=== PATIENT | female | born 1940 | race Caucasian/White ===

== ENCOUNTER 2017-08-02 14:57 | Inpatient (IN) | payer OTHER ==
[~2017-08-02] VITALS: Ht 167.6 cm; Wt 61.2 kg
[2017-08-02 15:23] LABS: ABSOLUTE BASOPHIL COUNT 0 /CUMM (0.0-0.2); ABSOLUTE EOSINOPHIL COUNT 0 /CUMM (0.0-0.7); ABSOLUTE GRANULOCYTE CT 13.9 /CUMM (1.4-6.5); ABSOLUTE LYMPH COUNT 0.2 /CUMM (1.2-3.4); ABSOLUTE MONOCYTE COUNT 0.6 /CUMM (0.10-0.60); BASOPHIL % 0.1 % (0.0-2.0); EOSINOPHIL % 0.1 % (0-5); GRANULOCYTE % 94.1 % (42.2-75.2); HEMATOCRIT 34.7 % (37-47); MEAN CORPUSCULAR HGB 30.5 PG (27.0-31.0); MEAN CORPUSCULAR VOLUME 89.8 FL (81.0-99.0); MEAN PLATELET VOLUME 8.3 FL (7.4-10.4); PLATELET COUNT 208 /CUMM (130-400); RBC DISTRIBUTION WIDTH 13.7 % (11.5-14.5); RED BLOOD CELL CT 3.86 /CUMM (4.20-5.40); WHITE BLOOD CELL COUNT 14.8 /CUMM (4.8-10.8)
--- NOTE | 2017-08-02 18:27 | ED GI/GU/ABDOMINAL COMPLAINT ---
See Addendum History of Present Illness General Chief Complaint: Nausea, Vomiting, Diarrhea Stated Complaint: +V X 3 TIMES TODAY Source: patient, old records Exam Limitations: no limitations Vital Signs & Intake/Output Vital Signs & Intake/Output Vital Signs Date Time Temp Pulse Resp B/P B/P Pulse O2 O2 Flow FiO2 Mean Ox Delivery Rate 08/027 96.3 63 18 136/63 99 Room Air 08/02 2244 65 20 109/56 100 Room Air 08/02 2016 97.0 74 16 121/77 100 Room Air 08/02 1506 98.9 112 16 122/72 96 Room Air ED Intake and Output 08/03 0000 08/02 1200 Intake Total 2000 Output Total Balance 1999 Intake, IV 1999 Intake, Oral 0 Allergies Coded Allergies: procaine (From NOVOCAIN) (Severe, COULDNT WAKE UP 08/02/17) Sulfa (Sulfonamide Antibiotics) (Intermediate, ITCHING 08/02/17) nitrofurantoin (From MACROBID) (Intermediate, FELT WORSE TAKING IT 08/02/17) Triage Note: PT TO ED WITH C/O VOMITING X3 TIMES TODAY AFTER EATING BREAKFAST. STATES THAT SHE HAS BEEN TOLD SHE MAY HAVE ISSUES WITH HER GALLBLADDER BUT PT IS UNSURE WHAT. DENIES ANY ABD PAINS NOW, DENIES ANY NAUSEA CURRENTLY. Triage Nurses Notes Reviewed? yes ? n Is pt currently ? No Onset: Abrupt Duration: day(s): (1), better, constant Timing: recent history Quality/Severity: aching, moderate, sharpness Severity Numbers: 6 Location: epigastric Radiation: no radiation Activities at Onset: eating Prior Abdominal Problems: similar symptoms No Modifying Factors: none Associated Symptoms: denies HPI: 37-year-old female history of hypothyroid presents to ER for evaluation of she developed sudden onset of epigastric nonradiating abdominal pain associated 3 episodes of nausea vomiting today. She states her symptoms have since resolved she states she is feeling nauseous no hematemesis no black or bloody stools. She denies any fevers or chills. Her family states over the past few weeks she' s had similar episodes at which time she had an ultrasound performed last week that showed cholelithiasis and biliary sludge. She was scheduled to follow up with general surgeon Dr. Correa on for evaluation however the episodes occur today associated with a fever of 102. She took Tylenol prior to arrival. She states that she had blood work performed last week and was told by her primary care physician that her liver enzymes were elevated. No history of abdominal surgeries in the past. No chest pain or shortness of breath nothing makes pain better or worse. (Benjamin Franklin) Past History Travel History Traveled to [place] past 21 day No Medical History Any Pertinent Medical History? see below for history Gastrointestinal: ?GALLBLADDER ISSUES Endocrine: hypothyroidism Surgical History Surgical History: none Psychosocial History What is your primary language Japanese Tobacco Use: Never used Family History Hx Contributory? No (Benjamin Franklin) Review of Systems Review of Systems Constitutional: Reports: see HPI. Comments Review of systems: See HPI, All other systems negative. Constitutional, no chills no fever, no malaise HEENT: no sore throat no congestion, no ear pain Cardiovascular: No chest pain , no palpitation Skin: no rashes, no change in skin Respiratory: No dyspnea no cough no sputum GI: nausea vomiting, no diarrhea, no bloating/constipation : No dysuria No hematuria, no frequency Muscle skeletal: No joint pain, no back pain, no neck pain, Neurologic: , no headache Heme/endocrine: No bruising (Benjamin Franklin) Physical Exam Physical Exam General Appearance: well developed/nourished, alert, awake Gastrointestinal: soft Comments: Well-developed well-nourished person in no acute distress HEENT: Normal EENT exam; PERRL, EOMI, . HEAD is atraumatic. moist mucous membranes. Neck: Supple, normal range of motion Back: Nontender, no CVA tenderness. Full range of motion Cardiovascular: Regular rate and rhythms no murmurs rubs Respiratory: Chest nontender.There were no bony deformities, no asymmetry. No respiratory distress. Patient speaking in full complete sentences. Breath sounds clear to auscultation bilaterally: NO W/R/R Abdomen: Soft, nontender nondistended, no appreciable organomegaly. Normal bowel sounds. No rebound/guarding,, No ascites. Extremity: No edema, full range of motion of extremities Neuro: Alert oriented x3, motor sensory normal,. There were no obvious focal neurologic abnormalities. Skin: No appreciable rash on exposed skin, skin is warm and dry. Psych: Mood and affect is normal, memory and judgment is normal. Core Measures ACS in differential dx? Yes Sepsis Present: No Sepsis Focused Exam Completed? No (Louie CAMP,Benjamin) Progress Differential Diagnosis: appendicitis, biliary colic, bowel obstruction, colon cancer, cholecystitis (cholangitis), diverticulitis, gastritis, hepatitis, hernia, ischemic bowel, inflamm bowel dis, pancreatitis, peptic ulcer, PUD/GERD, perforated viscous Plan of Care: Orders Procedure Date/time Status Nothing by Mouth 08/03 B Active HEPATIC FUNCTION PANEL 08/03 06 Active CBC WITHOUT DIFFERENTIAL 08/03 0600 Active BASIC ELECTROLYTES PLUS BUN&CR 08/03 0600 Active TROPONIN LEVEL 08/03 0004 Active EKG 08/03 0004 Active Pathway - chart 08/02 235 Active House Staff 08/02 235 Active Patient Data 08/02 2304 Active LACTIC ACID 08/02 230 Complete Saline Lock 08/02 2150 Active Misc Message 08/02 2150 Active ED Holding Orders 08/02 2150 Active Admit to inpatient 08/02 2150 Active Vital Signs 08/02 2150 Active Code Status 08/02 2150 Active Add-on Test (ER Only) 08/02 210 Active EKG 08/02 1932 Active Intake & Output 08/02 1851 Active Add-on Test (ER Only) 08/02 1842 Active BLOOD CULTURE 08/02 1842 Active LACTIC ACID 08/02 1842 Complete PARTIAL THROMBOPLASTIN TIME 08/02 1515 Complete PROTHROMBIN TIME 08/02 1515 Complete DIRECT BILIRUBIN 08/02 1515 Complete TROPONIN LEVEL 08/02 1507 Complete LIPASE 08/02 1507 Complete COMPREHENSIVE METABOLIC PANEL 08/02 1507 Complete CBC WITHOUT DIFFERENTIAL 08/02 1507 Complete VTE Mechanical Prophylaxis 08/02 UNK Active Current Medications Sig/Dominique Start time Last Medication Dose Stop Time Status Admin Ceftriaxone Sodium 1,000 MG 1900 08/03 1900 AC (Rocephin) Levothyroxine Sodium 37.5 MCG DAILY 08/03 0900 AC (Synthroid) Sodium Chloride 1,000 ML Q10H 08/03 0015 AC (Normal Saline 0.9%) 08/03 2013 Trimethobenzamide HCl 200 MG TID PRN 08/03 0015 AC (Tigan) Metronidazole 500 MG IQ8 08/03 0000 AC (Flagyl) N/A 1 UNIT (No Carrier) Acetaminophen 650 MG Q6P PRN 08/02 2345 AC (Tylenol) Laboratory Tests 08/02/17 2343: Lactic Acid 1.3 08/02/17 214: Lactic Acid Cancelled 08/02/17 191: Lactic Acid 2.0 08/02/17 1515: Anion Gap 12, Estimated GFR > 60, BUN/Creatinine Ratio 13.8, Glucose 137 H, Calcium 9.2, Total Bilirubin 3.2 H, Direct Bilirubin 2.4 H, AST 73 H, ALT 95 H, Alkaline Phosphatase 348 H, Troponin I 0.08, Total Protein 6.5, Albumin 3.8, Globulin 2.7, Albumin/Globulin Ratio 1.4, Lipase 87, PT 12.4, INR 1.14, APTT 30, CBC w Diff MAN DIFF ORDERED, RBC 3.86 L, MCV 89.8, MCH 30.5, MCHC 34.0, RDW 13.7, MPV 8.3, Gran % 94.1 H, Lymphocytes % 1.7 L, Monocytes % 4.0, Eosinophils % 0.1, Basophils % 0.1, Absolute Granulocytes 13.9 H, Segmented Neutrophils 81 H, Band Neutrophils 14 H, Absolute Lymphocytes 0.2 L, Monocytes 5, Absolute Monocytes 0.6, Absolute Eosinophils 0, Absolute Basophils 0, Platelet Estimate VERIFIED BY SMEAR, Stomatocytes 1+ Microbiology 08/03 1911 BLOOD: Blood Culture - RECD 08/02 1899 BLOOD: Blood Culture - RECD Labs ordered old records reviewed patient is declining pain when offered Zofran 4 IV IV fluids ordered Case discussed with Dr. Alaniz who agrees with plan-I discussed with patient and her family her lab results CAT scan ordered her family will go home to get a copy of the ultrasound. 1999 patient back from CAT scan resting comfortably she's had no episodes of vomiting here declining anything for pain when offered 08/02/2017 8:04:10 PM Case discussed with and signed out to Dr. Alaniz pending CAT scan results Diagnostic Imaging: Viewed by Me: CT Scan. Discussed w/RAD: CT Scan. Initial ED EKG: normal intervals, normal p-waves, normal QRS complex, normal sinus rhythm Hand-Off Endorsed To: Katty BERNARD,Willian Castillo Endorsed Time: 1999 Pending: CT, consult (surgery/gi) (Benjamin Franklin) Radiology Impression: PATIENT: SHELLEY JASMINE PRESENT AGE: 77 PATIENT ACCOUNT NO: [id number] : 42 LOCATION: [facility] ORDERING PHYSICIAN: Benjamin CAMP SERVICE DATE: 08/02/17 EXAM TYPE: CAT - CT ABD & PELVIS W IV CONTRAST EXAMINATION: CT ABDOMEN AND PELVIS WITH CONTRAST CLINICAL INFORMATION: Right upper quadrant abdominal pain. History of cholelithiasis. COMPARISON: None TECHNIQUE: Multidetector volumetric imaging was performed of the abdomen and pelvis following IV administration of 95 mL of Optiray 320 intravenous contrast. Sagittal and coronal reformatted images were obtained on the technologist's workstation. DLP: 235.19 mGy-cm FINDINGS: LUNG BASES: Linear scarring at lung bases. No infiltrate or pleural effusion. LIVER, GALLBLADDER, AND BILIARY TREE: There is intrahepatic and extra hepatic bile duct dilatation. The extrahepatic CBD is dilated to a diameter of 1.8 cm at the shmuel hepatis. There are 2 stones impacted in the distal CBD these each measure about 1.3 cm. These stones are both isodense stones. There are no calcified stones in the gallbladder. No edema around the gallbladder. No focal liver lesion. PANCREAS: Unremarkable. SPLEEN: Unremarkable. ADRENAL GLANDS: Unremarkable. KIDNEYS AND URETERS: The kidneys are normal in size, shape, and attenuation. No hydronephrosis, hydroureter, or calculi seen. No perinephric stranding. BLADDER: Unremarkable. GASTROINTESTINAL TRACT: There are scattered diverticula of the colon. No diverticulitis. No bowel obstruction. No bowel wall thickening or edema. Moderate volume of stool in the colon. Most of the stool is in the cecum and in the pelvis. The appendix is normal. The small bowel loops are normal. ABDOMINAL WALL: Small fat-containing umbilical hernia. LYMPH NODES: Normal. VASCULAR: There is atherosclerotic vascular wall calcifications of aorta and iliac vessels without aneurysm. There is prominent pelvic sidewall vessels and subserosal vessels of the uterus. There are prominent gonadal veins bilaterally. PELVIC VISCERA: The uterus is retroverted. No adnexal abnormality. OSSEOUS STRUCTURES: Degenerative spondylosis of spine with disc height narrowing and endplate spurring at L4-L5. There is facet joint arthrosis at lower lumbar spine. IMPRESSION: Significant dilatation of the bile ducts. There are 2 stones impacted in the distal CBD. These each measure about 1.3 cm. No stones identified in the gallbladder and there is no edema around the gallbladder. DICTATED BY: Logan Chavira MD DATE/TIME DICTATED:08/02/172022 VIDEO GAME ANIMATOR :ALAN DATE/TIME TRANSCRIBED:08/02/172022 CONFIDENTIAL, DO NOT COPY WITHOUT APPROPRIATE AUTHORIZATION. <Electronically signed in Other Vendor System> SIGNED BY: Logan Chavira MD 08/02/172034 (Willian Alaniz MD) Departure Departure Disposition: STILL A PATIENT Condition: Stable Referrals: Felipe BERNARD,Sandee Goodson (PCP/Family) Departure Forms: Customer Survey General Discharge Information (Benjamin Franklin) Departure Clinical Impression Primary Impression: Cholangitis Secondary Impressions: Sepsis Admission Note Spoke With: Anna Waterman MD Documentation of Exam: Documentation of any treatments & extenuating circumstances including Concerns Regarding Discharge (functional status, medication knowledge or non-compliance, living conditions, etc.) that warrant an admission rather than observation: pt with cholangitis/cholecystitis due to choledocholithiasis... discussed with [facility], who will evaluate patient tomorrow... discussed with dr. flores, who will consult if needed. iv abx given... discused at length with patient and family...pt merits evaluation for ercp. PA/TAILER IN Co-Sign Statement Statement: ED Attending supervision documentation- [x] I saw and evaluated the patient. I have also reviewed all the pertinent lab results and diagnostic results. I agree with the findings and the plan of care as documented in the PA's/TAILER IN's documentation. 08.03.17, 22:30... pt with minimally tender abd to palpation, otherwise comfortable in ED... lft's consistent with obstructive hepatopathy. see admit note above. [] I have reviewed the ED Record and agree with the PA's/TAILER IN's documentation. [] Additions or exceptions (if any) to the PAs/TAILER IN's note and plan are summarized below: [] (Katty BERNARD,Willian Castillo) Critical Care Note Critical Care Note Critical Care Time: 30-74 min (Willian Alaniz MD)
--- NOTE | 2017-08-02 20:35 | CT SCAN REPORT ---
EXAMINATION: CT ABDOMEN AND PELVIS WITH CONTRAST CLINICAL INFORMATION: Right upper quadrant abdominal pain. History of cholelithiasis. COMPARISON: None TECHNIQUE: Multidetector volumetric imaging was performed of the abdomen and pelvis following IV administration of 95 mL of Optiray 320 intravenous contrast. Sagittal and coronal reformatted images were obtained on the technologist's workstation. DLP: 235.19 mGy-cm FINDINGS: LUNG BASES: Linear scarring at lung bases. No infiltrate or pleural effusion. LIVER, GALLBLADDER, AND BILIARY TREE: There is intrahepatic and extra hepatic bile duct dilatation. The extrahepatic CBD is dilated to a diameter of 1.8 cm at the shmuel hepatis. There are 2 stones impacted in the distal CBD these each measure about 1.3 cm. These stones are both isodense stones. There are no calcified stones in the gallbladder. No edema around the gallbladder. No focal liver lesion. PANCREAS: Unremarkable. SPLEEN: Unremarkable. ADRENAL GLANDS: Unremarkable. KIDNEYS AND URETERS: The kidneys are normal in size, shape, and attenuation. No hydronephrosis, hydroureter, or calculi seen. No perinephric stranding. BLADDER: Unremarkable. GASTROINTESTINAL TRACT: There are scattered diverticula of the colon. No diverticulitis. No bowel obstruction. No bowel wall thickening or edema. Moderate volume of stool in the colon. Most of the stool is in the cecum and in the pelvis. The appendix is normal. The small bowel loops are normal. ABDOMINAL WALL: Small fat-containing umbilical hernia. LYMPH NODES: Normal. VASCULAR: There is atherosclerotic vascular wall calcifications of aorta and iliac vessels without aneurysm. There is prominent pelvic sidewall vessels and subserosal vessels of the uterus. There are prominent gonadal veins bilaterally. PELVIC VISCERA: The uterus is retroverted. No adnexal abnormality. OSSEOUS STRUCTURES: Degenerative spondylosis of spine with disc height narrowing and endplate spurring at L4-L5. There is facet joint arthrosis at lower lumbar spine. IMPRESSION: Significant dilatation of the bile ducts. There are 2 stones impacted in the distal CBD. These each measure about 1.3 cm. No stones identified in the gallbladder and there is no edema around the gallbladder.
[2017-08-02 21:55] LABS: PT 12.4 SEC (9.4-12.5); PTT 30 SEC (25-37)
--- NOTE | 2017-08-02 22:34 | History & Physical ---
Donna Jasso 08/02/17 2233: General Information and HPI History of Present Illness: Ms. Zavala is a 77-year-old female with a PMH of polymyalgia rheumatica previously on steroids, hypothyroidism who presents to the ED with N/V. Patient reports this morning she felt hungry and after eating his she had one episode of vomiting. She also had a fever with a recorded temperature of 102.1 and overnight had night sweats. Her PCP ordered imaging that showed choledocholelithiasis and a gallstone measuring 1.1 cm. Subsequently she was given a referral to see Dr. Correa-flor this upcoming . For the past 1 month she has had dry heaving, nausea without abdominal pain and recalls for the past 2 years she has had intermittent nausea that was attributed to GERD. She was recently treated for a asymptomatic UTI with Bactrim which she completed. The only symptom she had at that time was weakness. After completing Bactrim she noticed bilateral hand maculopapular rash but after informing her PCP she was instructed to complete her antibiotics. She is very active, walks without assistance and performs her own ADLs. She denies SOB, CP, abdominal pain, urinary or bowel symptoms Allergies/Medications Allergies: Coded Allergies: procaine (From NOVOCAIN) (Severe, COULDNT WAKE UP 08/02/17) Sulfa (Sulfonamide Antibiotics) (Intermediate, ITCHING 08/02/17) nitrofurantoin (From MACROBID) (Intermediate, FELT WORSE TAKING IT 08/02/17) Past History Travel History Traveled to [place] past 21 day No Medical History Gastrointestinal: ?GALLBLADDER ISSUES Endocrine: hypothyroidism Surgical History Surgical History: none Review of Systems Review of Systems Constitutional: Reports: see HPI. Exam & Diagnostic Data Last 24 Hrs of Vital Signs/I&O Vital Signs Date Time Temp Pulse Resp B/P B/P Pulse O2 O2 Flow FiO2 Mean Ox Delivery Rate 08/03 0112 98.0 69 20 136/73 97 Room Air 08/02 2347 96.3 63 18 136/63 99 Room Air 08/02 2244 65 20 109/56 100 Room Air 08/02 2016 97.0 74 16 121/77 100 Room Air 08/02 1506 98.9 112 16 122/72 96 Room Air Intake & Output 08/03 0800 08/03 0000 08/02 1600 Intake Total 2000 Output Total Balance 2000 Intake, IV 2000 Intake, Oral 0 Patient 135 lb Weight Weight Bed scale Measurement Method Physical Exam General Appearance Alert, Oriented X3, Cooperative, No Acute Distress HEENT Atraumatic, PERRLA, EOMI, Mucous Membr. moist/pink Neck Supple, No JVD Cardiovascular Regular Rate, Normal S1, Normal S2, No Murmurs Lungs Clear to Auscultation, Normal Air Movement Abdomen Normal Bowel Sounds, Soft, No Tenderness, negative Dan sign Extremities No Edema Sepsis Peripheral Pulse Location: Radial Sepsis Peripheral Pulse Exam: Normal Sepsis Cap Refill Exam: <2 Sec Last 24 Hrs of Labs/Tyler: Laboratory Tests 08/02/17 214: Lactic Acid Cancelled 08/02/171911: Lactic Acid 2.0 08/02/17 151: Anion Gap 12, Estimated GFR > 60, BUN/Creatinine Ratio 13.8, Glucose 137 H, Calcium 9.2, Total Bilirubin 3.2 H, Direct Bilirubin 2.4 H, AST 73 H, ALT 95 H, Alkaline Phosphatase 348 H, Troponin I 0.08, Total Protein 6.5, Albumin 3.8, Globulin 2.7, Albumin/Globulin Ratio 1.4, Lipase 87, PT 12.4, INR 1.14, APTT 30, CBC w Diff MAN DIFF ORDERED, RBC 3.86 L, MCV 89.8, MCH 30.5, MCHC 34.0, RDW 13.7, MPV 8.3, Gran % 94.1 H, Lymphocytes % 1.7 L, Monocytes % 4.0, Eosinophils % 0.1, Basophils % 0.1, Absolute Granulocytes 13.9 H, Segmented Neutrophils 81 H, Band Neutrophils 14 H, Absolute Lymphocytes 0.2 L, Monocytes 5, Absolute Monocytes 0.6, Absolute Eosinophils 0, Absolute Basophils 0, Platelet Estimate VERIFIED BY SMEAR, Stomatocytes 1+ Microbiology 08/03 1911 BLOOD: Blood Culture - RECD 08/02 1899 BLOOD: Blood Culture - RECD Diagnostic Data EKG Results SR, T-wave inversions in precordial leads, HR 74, QTc [address] ABDOMEN AND PELVIS WITH CONTRAST IMPRESSION: Significant dilatation of the bile ducts. There are 2 stones impacted in the distal CBD. These each measure about 1.3 cm. No stones identified in the gallbladder and there is no edema around the gallbladder. Assessment/Plan Assessment: Ms. Zavala is a 77-year-old female with a PMH of polymyalgia rheumatica previously on steroids, hypothyroidism who presents to the ED with N/V without abdominal pain. Problem list: Choledocholithiasis Acute Cholangitis Plan: Admit to general med for further evaluation and management NS IVF IV ceftriaxone IV metronidazole Blood cultures 2 Repeat ECG/Troponin Trend lactic acid GI consult for ? ERCP Surgery consult with Dr. Correa as per patient request Diet: Regular DVT ppx: ALPS Code: Full As Ranked By This Provider Problem List: 1. Cholangitis 2. Sepsis Core Measures/Misc (12/27) Acute Coronary Syndrome ACS Diagnosis: No Congestive Heart Failure Congestive Heart Failure Diagnosis No Cerebrovascular Accident CVA/TIA Diagnosis: No VTE (View Protocol) VTE Risk Factors Age>40 No Mechanical VTE Prophylaxis d/t N/A MechProphylax Ordered No VTE Pharm Prophylaxis d/t Medical Contraindication Sepsis (View protocol) Sepsis Present: Yes Anna Waterman 08/03/17 0418: Attending MD Review Statement Attending Statement Attending MD Statement: examined this patient, discuss w/resident/PA/TRUCK MECHANIC, agreed w/resident/PA/TRUCK MECHANIC, discussed with family, reviewed EMR data (avail), reviewed images, amended to note Attending Assessment/Plan: CC: Vomiting PMH: Hypothyroidism Patient came to ER for 3 episodes of vomiting today. She states that she was last 2 weeks she has been having dry heaving, fatigue. She followed up outpatient with the primary care physician where her liver function tests were elevated so she underwent right upper quadrant ultrasound. She was told that she has gallbladder stones and she needs to be seen by a surgeon. She is expecting to see surgeon in near future but meanwhile she had 3 episodes of vomiting today followed by chills, fever of 102 so she called primary care physician who suggested to go to ER. Recently she was treated with by mouth Bactrim for UTI. Otherwise complete ROS unremarkable, patient denies any pain in abdomen or chest at this moment. Vitals: T max 98.9, pulse 112, RR 16, blood pressure 122/72, saturating 96% on room air On exam: A O 3, cooperative, no acute distress, neck supple, JVD normal, no lymphadenopathy, mucosa dry, no focal neurological deficit, no dependent edema, no obvious skin rashes or inflammation CVS: S1-S2, RRR. RS: Clear to auscultate bilaterally. Abdomen: Soft, NT, ND, bowel sounds present. Dan's sign negative CT abdomen pelvis with IV contrast: Significant dilatation of the bile ducts. There are 2 stones impacted in the distal CBD. These each measure about 1.3 cm. No stones identified in the gallbladder and there is no edema around the gallbladder. Assessment and plan 77-year-old female with past medical history significant for hypothyroidism presented in ER for nausea and 3 episodes of vomiting, chills, fever which happened today. She has been having dry he cuts and vague fatigue since last 2 weeks and was investigated with liver function test which was elevated and right upper quadrant ultrasound showed CBD stone. She was referred to surgery for cholecystectomy, awaiting evaluation. Examination reveals dehydration otherwise unremarkable, including Dan's sign negative. She is found to have significant leukocytosis with bandemia, elevated bilirubin especially direct bilirubin, transaminitis, elevated alkaline phosphatase. Lipase normal range. CT abdomen and pelvis confirms impacted distal CBD stone, given history of fever, chills at home and tachycardia with leukocytosis will cover empirically with antibiotics with ceftriaxone and Flagyl for ascending cholangitis. Grinder Set [employer] was called from ER. + CBD stone with suspected ascending cholangitis + History of hypothyroidism - Admit to general medicine - Continue aggressive hydration - Follow blood cultures - IV ceftriaxone and Flagyl - Consult community chest officer for possible ERCP - Surgical consult after ERCP - Serial troponins and ECGs - Trend lactate - Vitals every 4 hours - Adequate pain control Fariha St 08/03/17 0511: Resident Review Statement Resident Statement: examined this patient, discussed with information technology internship, agreed with information technology internship, reviewed images, amended to note Other Findings: 77-year-old lady with past medical history of polymyalgia rheumatica not on steroids since 2 years ago, hypothyroidism,Recent UTI treated with Bactrim which resulted in 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 Information was obtained from patient's family and patient have self. According to family and the patient she's been having occasional nausea and dyspepsia on and off for past 2 years. About months ago patient's nausea and abdominal discomfort has increased in frequency. Patient was prescribed PPI per PCP for possible DDX of GERD. Abdominal ultrasound which was done about 10 days ago showed choledocholithiasis and patient supposed to see Dr. Correa in the upcoming week for consultation. Today before coming to the hospital patient a fever of 102 and increased nausea with night sweats with one episode of vomiting. He was advised by PCP to come to the hospital for admission. Vision is active at baseline and does not have any history of chest pain, shortness of breath, coughing, diarrhea, constipation, TIA, heart attacks before. She had one episode of hospitalization due to polymyalgia rheumatica about 5 years ago. 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 CT of the abdomen and pelvis Significant dilatation of the bile ducts. There are 2 stones impacted in thedistal CBD. These each measure about 1.3 cm. No stones identified in the gallbladder and there is no edema around the gallbladder. EKG showed normal sinus rhythm, no acute ST-T elevations, QTC was 484, inverted T in V1 and V2 Assessment Sepsis due to cholangitis and choledocholithiasis History of hypothyroidism Lactic acidosis which is resolved Plan Admit to general medicine floor NPO IV hydration with Normal saline Antibiotic therapy with IV ceftriaxone daily and IV Flagyl every 8 ERCP in the morning by GI IV levothyroxine Follow-up blood culture Vitals every 4 EKG and troponin 2 IM Tigan when necessary for nausea Surgery consultation with Dr. Correa should be placed in the morning per request of the family DVT prophylaxis is mechanical for now, Tylenol for pain, NPO, full code
[2017-08-03 01:12] VITALS: BP 136/73
--- NOTE | 2017-08-03 04:19 | Admission Certification ---
Admission Certification Certification Statement - As attending physician, I certify that at the time of - admission, based on clinical presentation, severity of - symptoms, need for further diagnostic testing and - therapeutic interventions, and risk of adverse outcomes - without in-hospital treatment, in my clinical assessment, - this patient requires an acute hospital stay for a minimum - of two nights or longer. I have also considered psychsocial - factors such as support system, advanced age, financial - issues, cognitive issues, and failed out-patient treatments, - past re-admission history, safety of patient, and lack of - compliance as applicable. Specific rationale supporting this admission is: CBD stone, suspected ascending cholangitis
--- NOTE | 2017-08-03 07:13 | PN- Housestaff ---
[facility] Subjective Follow-up For: Choledocholithiasis and possible cholangitis Gram -ve bacteremia Subjective: Over night events. Patient remained afebrile blood pain seen and examined this morning. She denied any chest pain, shortness of breath, palpitation, chills, fever, vomiting, abdominal pain and dysuria. She reported having nausea. Nursing staff told me that her blood culture is positive for gram -ve rods. Patient is already on antibiotics and we will repeat blood cultures. Review of Systems Constitutional: Denies: chills, fever, weakness. EENTM: Reports: no symptoms. Cardiovascular: Denies: chest pain, palpitations. Respiratory: Denies: cough, short of breath, sputum production. Gastrointestinal: Reports: nausea. Denies: abdominal pain, constipation, diarrhea. Genitourinary: Reports: no symptoms. Musculoskeletal: Reports: no symptoms. Neurological/Psychological: Reports: no symptoms. Objective Last 24 Hrs of Vital Signs/I&O Vital Signs Date Time Temp Pulse Resp B/P B/P Pulse O2 O2 Flow FiO2 Mean Ox Delivery Rate 08/03 07 98.1 78 20 110/57 99 Room Air 08/03 0112 98.0 69 20 136/73 97 Room Air 08/02 2347 96.3 63 18 136/63 99 Room Air 08/02 2244 65 20 109/56 100 Room Air 08/02 2016 97.0 74 16 121/77 100 Room Air 08/02 1506 98.9 112 16 122/72 96 Room Air Intake & Output 08/03 1600 08/03 0800 08/03 0000 Intake Total 400 2000 Output Total Balance 400 2000 Intake, IV 400 2000 Intake, Oral 0 Patient 135 lb Weight Weight Bed scale Measurement Method Physical Exam General Appearance: Alert, Oriented X3, Cooperative Skin: No Rashes Skin Temp/Moisture Exam: Warm/Dry Sepsis Skin Exam (color): Normal for Ethnicity HEENT: Atraumatic, PERRLA, EOMI Neck: Supple Cardiovascular: Normal S1, Normal S2 Lungs: Clear to Auscultation Abdomen: Soft, No Tenderness Neurological: Normal Speech, Strength at 5/5 X4 Ext, Normal Tone Extremities: No Edema Assessment/Plan Assessment: 77-year-old female with a PMH of polymyalgia rheumatica previously on steroids, hypothyroidism who presents to the ED with N/V. Patient reports this morning she felt hungry and after eating his she had one episode of vomiting. Following the patient on Gen. medicine floor for following problems; Choledocholithiasis with possible cholangitis: -Nothing by mouth -Continued ceftriaxone and Flagyl. Unasyn 3gm Q6h started day 1 -Patient is going for ERCP today -Follow-up with CBC and if patient becomes febrile then we will do blood cultures. -We will follow general surgery for possible cholecystectomy before she leaves -Gentle IV fluid hydration with dextrose half normal saline -IV Zofran as needed for nausea vomiting Gram -ve bacteremia: -Follow up final blood cultures. -Continue antibiotics Transaminitis: -Possibly due to CBD stone -We will follow LFTs History of hypothyroidism: -Continue levothyroxine DVT prophylaxis: Mechanical and subcutaneous heparin CODE STATUS: Full code Problem List: 1. Cholangitis Pain Ratin Pain Location: NONE Pain Goal: Remain pain free Pain Plan: PAIN PATHWAY Tomorrow's Labs & Rationales: CBC/BEP Sergio Wahl MD 08/03/17 1128: Attending MD Review Statement Attending Statement Attending MD Statement: examined this patient, discuss w/resident/PA/PAPERHANGER APPRENTICE, agreed w/resident/PA/PAPERHANGER APPRENTICE, reviewed EMR data (avail), discussed with nursing, discussed with case mgmt, amended to note Attending Assessment/Plan: Patient seen and examined. Resting comfortably and not in any acute distress. Denies nausea or vomiting. Denies abdominal pain. She is afebrile and hemodynamically stable. On examination abdomen is nondistended, soft and nontender with normal bowel sounds. She has been seen by the gastroenterology service today and they have plans to perform an ERCP for stone extraction. Once this is completed she will also be evaluated by the general surgery service for cholecystectomy. Patient is in agreement with this plan. Patient did present with an elevated white count. She did report fever at home although she has been afebrile here in the hospital. She is being treated for cholangitis with IV antibiotic therapy. Will continue antibiotic therapy for now. Change to Unasyn for appropriate coverage.
[2017-08-03 07:22] VITALS: BP 110/57
--- NOTE | 2017-08-03 07:47 | Cons- Gastroenterology ---
General Information and HPI Consulting Request Date of Consult: 08/03/17 Requested By: Anna Waterman MD Reason for Consult: Cholangitis; increased LFTs, choledocolithiasis on ct scan. Source of Information: patient Exam Limitations: no limitations History of Present Illness: Ms. Calix is a 77 year old female with a PMH significant for hypothyroidism who presented to yesterday afternoon with complaints of nausea and vomiting and fevers. She notes that yesterday around noon she developed worsening nausea , bloating and bilious vomiting, but she denies having significant abdominal or back pain. She has had some issues with intermittent nausea and vomiting over the past few months, but she denies any RUQ abdominal pain after eating. She had gotten an US a few weeks ago for dyspeptic symptoms at [facility] which showed gallstones and she was going to see a surgeon, Dr. Correa, on . She had a fever of 103F at home for which she took tyenol with defervesence of her fever and she has not had any recurrent temperature spikes since then. She denies any noticable change in the color of her urine of stool, both of which she states are normal. She is also without any burning epigastric discomfort, dysphagia or any hematemesis with the vomiting. On arrival to the ER she was afebrile and hemodynamically stable. She was noted to have increased LFTs and a ct scan showed choledocolithiasis. She has been started on antibiotics and she has remained afebrile, hemodynamically stable and pain free since she has been admitted. Allergies/Medications Allergies: Coded Allergies: procaine (From NOVOCAIN) (Severe, COULDNT WAKE UP 08/02/17) Sulfa (Sulfonamide Antibiotics) (Intermediate, ITCHING 08/02/17) nitrofurantoin (From MACROBID) (Intermediate, FELT WORSE TAKING IT 08/02/17) Current Medications: Current Medications Sig/Dominique Start time Last Medication Dose Route Stop Time Status Admin Acetaminophen 650 MG Q6P PRN 08/02 2345 AC PO Ceftriaxone Sodium 1,000 MG 1900 08/03 1899 AC IV Ceftriaxone Sodium 0 .STK-MED ONE 08/03 1943 DC .ROUTE Ceftriaxone Sodium 1,000 MG ONCE ONE 08/02 1899 DC 08/02 IV 08/02 Levothyroxine Sodium 37.5 MCG DAILY 08/03 0900 AC IV Metronidazole 500 MG Q8H 08/03 1100 AC N/A 1 UNIT IV Metronidazole 500 MG IQ8 08/03 0000 DC 08/03 N/A 1 UNIT IV 0246 Metronidazole 500 MG ONCE ONE 08/02 1900 DC 08/02 N/A 1 UNIT IV 08/02 Ondansetron HCl 0 .STK-MED ONE 08/02 190 DC .ROUTE Ondansetron HCl 4 MG ONCE ONE 08/02 184 DC 08/02 IV 08/02 1845 192 Sodium Chloride 1,000 ML Q10H 08/03 0015 AC 08/03 IV 08/03 Sodium Chloride 1,000 ML BOLUS ONE 08/02 194 DC 08/02 IV 08/02 Sodium Chloride 1,000 ML BOLUS ONE 08/02 1844 DC 08/02 IV 08/02 Trimethobenzamide HCl 200 MG TID PRN 08/03 0015 AC IM Past History Travel History Traveled to [place] past 21 day No Medical History Blood Transfusion Hx: No Neurological: NONE EENT: NONE Cardiovascular: NONE Respiratory: NONE Gastrointestinal: ?GALLBLADDER ISSUES Hepatic: NONE Renal: NONE Musculoskeletal: NONE Psychiatric: NONE Endocrine: hypothyroidism Blood Disorders: NONE Cancer(s): NONE WOUND CARE CENTER CONSULTANT/Reproductive: NONE Surgical History Surgical History: 1 Psychosocial History Where Do You Live? Home Services at Home: None Smoking Status: Never Smoked Review of Systems Review of Systems Constitutional: Reports: chills, fever. Denies: diaphoresis, malaise, weakness, unexplained weight loss. EENTM: Denies: no symptoms, icterus. Cardiovascular: Denies: no symptoms. Respiratory: Denies: no symptoms. GI: Reports: see HPI. Genitourinary: Denies: no symptoms. Musculoskeletal: Denies: no symptoms. Skin: Denies: no symptoms. Neurological/Psychological: Denies: no symptoms. Hematologic/Endocrine: Denies: no symptoms. Immunologic/Allergic: Denies: no symptoms. All Other Systems: Reviewed and Negative Exam & Diagnostic Data Vital Signs and I&O Vital Signs Date Time Temp Pulse Resp B/P B/P Pulse O2 O2 Flow FiO2 Mean Ox Delivery Rate 08/03 721 98.1 78 20 110/57 99 Room Air 08/03 0112 98.0 69 20 136/73 97 Room Air 08/02 2347 96.3 63 18 136/63 99 Room Air 08/02 2244 65 20 109/56 100 Room Air 08/02 2016 97.0 74 16 121/77 100 Room Air 08/02 1506 98.9 112 16 122/72 96 Room Air Intake & Output 08/03 0400 08/02 0400 08/01 0400 Intake Total 400 2000 Output Total Balance 400 2000 Intake, IV 400 2000 Intake, Oral 0 Patient 135 lb Weight Weight Bed scale Measurement Method Physical Exam General Appearance: well developed/nourished, no apparent distress, alert, awake , comfortable Head: atraumatic, normal appearance Eyes: Bilateral: normal appearance. Ears, Nose, Throat: normal pharynx, normal ENT inspection, hearing grossly normal Neck: normal inspection, supple, full range of motion Respiratory: normal breath sounds, chest non-tender, no respiratory distress Cardiovascular: regular rate/rhythm Gastrointestinal: normal bowel sounds, soft, non-tender, no organomegaly Rectal: deferred Back: normal inspection, normal range of motion Extremities: normal inspection, normal range of motion, no edema Skin: intact, normal color, warm/dry Results Pertinent Lab Results: Laboratory Tests 08/03 08/02 08/02 08/02 0115 2343 2142 1912 Chemistry Lactic Acid (0.7 - 2.1 mmol/L) 1.3 Cancelled 2.0 Troponin I (< 0.11 ng/ml) 0.06 08/02 1515 Chemistry Sodium (137 - 145 mmol/L) 136 L Potassium (3.5 - 5.1 mmol/L) 3.6 Chloride (98 - 107 mmol/L) 99 Carbon Dioxide (22 - 30 mmol/L) 25 Anion Gap (5 - 16) 12 BUN (7 - 17 mg/dL) 11 Creatinine (0.5 - 1.0 mg/dL) 0.8 Estimated GFR (>60 ml/min) > 60 BUN/Creatinine Ratio (7 - 25 %) 13.8 Glucose (65 - 99 mg/dL) 137 H Calcium (8.4 - 10.2 mg/dL) 9.2 Total Bilirubin (0.2 - 1.3 mg/dL) 3.2 H Direct Bilirubin (< 0.4 mg/dL) 2.4 H AST (14 - 36 U/L) 73 H ALT (9 - 52 U/L) 95 H Alkaline Phosphatase (<127 U/L) 348 H Troponin I (< 0.11 ng/ml) 0.08 Total Protein (6.3 - 8.2 g/dL) 6.5 Albumin (3.5 - 5.0 g/dL) 3.8 Globulin (1.9 - 4.2 gm/dL) 2.7 Albumin/Globulin Ratio (1.1 - 2.2 %) 1.4 Lipase (23 - 300 U/L) 87 Coagulation PT (9.4 - 12.5 SEC) 12.4 INR (0.90 - 1.19) 1.14 APTT (25 - 37 SEC) 30 Hematology CBC w Diff MAN DIFF ORDERED WBC (4.8 - 10.8 /CUMM) 14.8 H RBC (4.20 - 5.40 /CUMM) 3.86 L Hgb (12.0 - 16.0 G/DL) 11.8 L Hct (37 - 47 %) 34.7 L MCV (81.0 - 99.0 FL) 89.8 MCH (27.0 - 31.0 PG) 30.5 MCHC (33.0 - 37.0 G/DL) 34.0 RDW (11.5 - 14.5 %) 13.7 Plt Count (130 - 400 /CUMM) 208 MPV (7.4 - 10.4 FL) 8.3 Gran % (42.2 - 75.2 %) 94.1 H Lymphocytes % (20.5 - 51.1 %) 1.7 L Monocytes % (1.7 - 9.3 %) 4.0 Eosinophils % (0 - 5 %) 0.1 Basophils % (0.0 - 2.0 %) 0.1 Absolute Granulocytes (1.4 - 6.5 /CUMM) 13.9 H Segmented Neutrophils (42.2 - 75.2 %) 81 H Band Neutrophils (0.0 - 5.0 %) 14 H Absolute Lymphocytes (1.2 - 3.4 /CUMM) 0.2 L Monocytes (1.7 - 9.3 %) 5 Absolute Monocytes (0.10 - 0.60 /CUMM) 0.6 Absolute Eosinophils (0.0 - 0.7 /CUMM) 0 Absolute Basophils (0.0 - 0.2 /CUMM) 0 Platelet Estimate (ADEQUATE) VERIFIED BY SMEAR Stomatocytes 1+ Imaging/Other Studies: SERVICE DATE: 08/02/17 EXAM TYPE: CAT - CT ABD & PELVIS W IV CONTRAST EXAMINATION: CT ABDOMEN AND PELVIS WITH CONTRAST CLINICAL INFORMATION: Right upper quadrant abdominal pain. History of cholelithiasis. COMPARISON: None TECHNIQUE: Multidetector volumetric imaging was performed of the abdomen and pelvis following IV administration of 95 mL of Optiray 320 intravenous contrast. Sagittal and coronal reformatted images were obtained on the technologist's workstation. DLP: 235.19 mGy-cm FINDINGS: LUNG BASES: Linear scarring at lung bases. No infiltrate or pleural effusion. LIVER, GALLBLADDER, AND BILIARY TREE: There is intrahepatic and extra hepatic bile duct dilatation. The extrahepatic CBD is dilated to a diameter of 1.8 cm at the shmuel hepatis. There are 2 stones impacted in the distal CBD these each measure about 1.3 cm. These stones are both isodense stones. There are no calcified stones in the gallbladder. No edema around the gallbladder. No focal liver lesion. PANCREAS: Unremarkable. SPLEEN: Unremarkable. ADRENAL GLANDS: Unremarkable. KIDNEYS AND URETERS: The kidneys are normal in size, shape, and attenuation. No hydronephrosis, hydroureter, or calculi seen. No perinephric stranding. BLADDER: Unremarkable. GASTROINTESTINAL TRACT: There are scattered diverticula of the colon. No diverticulitis. No bowel obstruction. No bowel wall thickening or edema. Moderate volume of stool in the colon. Most of the stool is in the cecum and in the pelvis. The appendix is normal. The small bowel loops are normal. ABDOMINAL WALL: Small fat-containing umbilical hernia. LYMPH NODES: Normal. VASCULAR: There is atherosclerotic vascular wall calcifications of aorta and iliac vessels without aneurysm. There is prominent pelvic sidewall vessels and subserosal vessels of the uterus. There are prominent gonadal veins bilaterally. PELVIC VISCERA: The uterus is retroverted. No adnexal abnormality. OSSEOUS STRUCTURES: Degenerative spondylosis of spine with disc height narrowing and endplate spurring at L4-L5. There is facet joint arthrosis at lower lumbar spine. IMPRESSION: Significant dilatation of the bile ducts. There are 2 stones impacted in the distal CBD. These each measure about 1.3 cm. No stones identified in the gallbladder and there is no edema around the gallbladder. Assessment/Plan Assessment/Recommendations: Assessment: Ms. Calix is a 77 year old female who presented to with N/V which is presumably secondary to gallstone disease with her being noted to have 2 moderate sized gallstones in her CBD on her ct scan along with biliary dilatation. While it is unusual for pts to pass gallstones without any significant abdominal pain she nevertheless has managed to achieve this and considering her increased WBC count and reports of fevers at home the stones should be removed to relieve the obstruction and treat what appears to be cholangitis. The stones are of moderate size on the ct scan so mechanical lithotripsy may be necessary so if that is not able to be achieved today a stent may need to be placed to relieve the obstruction and treat the cholangitis and the stones could be removed at another time. Recommendations: 1. Keep NPO 2. Follow daily LFTs 3. Continue IV antibiotics, but would change to unasyn. 4. Will arrange for a therapeutic ERCP for later today 5. Surgical consult for [facility] (Dr. Correa who she was going to see this ) I will continue to follow this patient and make furthe recommendations based on her clinical course and results of the ERCP to be done later today. Consult Acknowledgment - Thank you for your consult request.
[2017-08-03 08:44] LABS: ABSOLUTE BASOPHIL COUNT 0 /CUMM (0.0-0.2); ABSOLUTE EOSINOPHIL COUNT 0 /CUMM (0.0-0.7); ABSOLUTE GRANULOCYTE CT 9.9 /CUMM (1.4-6.5); ABSOLUTE LYMPH COUNT 0.5 /CUMM (1.2-3.4); ABSOLUTE MONOCYTE COUNT 0.7 /CUMM (0.10-0.60); BASOPHIL % 0.1 % (0.0-2.0); EOSINOPHIL % 0.1 % (0-5); HEMATOCRIT 29.8 % (37-47); MEAN CORPUSCULAR HGB 30.9 PG (27.0-31.0); MEAN CORPUSCULAR HGB CONC 33.9 G/DL (33.0-37.0); MEAN CORPUSCULAR VOLUME 91.1 FL (81.0-99.0); MEAN PLATELET VOLUME 9.2 FL (7.4-10.4); PLATELET COUNT 187 /CUMM (130-400); RBC DISTRIBUTION WIDTH 13.8 % (11.5-14.5); RED BLOOD CELL CT 3.27 /CUMM (4.20-5.40); WHITE BLOOD CELL COUNT 11.2 /CUMM (4.8-10.8)
[2017-08-03 10:11] LABS: GRANULOCYTE % 88.4 % (42.2-75.2)
[2017-08-03 16:00] VITALS: BP 140/80
--- NOTE | 2017-08-03 17:34 | Proc Note ERCP ---
ERCP Procedure Procedure Date: 08/03/17 GI Procedure(s): ERCP with sphincterotomy (ES)/papillary balloon dilatation (EPBD)/[address] man: Allen Peres M.D. ASA Classification: II Indications: Ascending cholangitis Choledocholithiasis identified on imaging Instrument: duodenoscope Meds Received: MAC Patient's Tolerance: good Complications: none Procedure: The patient signed informed consent, and was brought to the operating suite. She was turned into the prone position, and medicated. Indomethacin 100 mg was administered per rectum. Pulse oximetry, blood pressure and cardiac monitoring were performed continuously throughout the procedure. The Olympus V duodenoscope was inserted into the mouth and advanced to the duodenum. There was brief, self-limited bleeding from the oropharynx upon insertion of the duodenoscope. The stomach was not examined. The duodenum was grossly normal. The papilla was enlarged but otherwise normal. The pancreatic duct was not cannulated/injected. The bile duct was cannulated and opacified. The cholangiogram demonstrated dilatation of the common bile duct and common hepatic duct (approximate 1.7 cm), and dilated hepatic ducts. There were no strictures. The cystic duct was not opacified. There were 2 large ( approximately 12 and 13 mm) mobile filling defects in the extrahepatic duct. A partial sphincterotomy was performed. The ampulla was then dilated with a CRE balloon to 13.5 mm for 30 seconds. There was mild/brief, self-limited bleeding at the apex of the papilla. 2 stones were extracted using a fully inflated 15 mm extraction balloon. The balloon itself passed into the duodenum without resistance. A final occlusion cholangiogram was unrevealing, and a final sweep from bifurcation to duodenum did not deliver stone or debris. Impression: * Choledocholithiasis, treated with ES/EPBD and stone extraction Recommendations: * Nothing by mouth until 8 PM, and then begin clear liquids if pain-free * No anticoagulation for 72 hours unless unavoidable * Follow-up CBC and LFTs tomorrow * Continue intravenous antibiotics, pending final results of blood cultures * Surgical consultation; Dr. Correa has been made aware CC: Sunny BERNARD,Norris Wang MD,Sandee Goodson
[2017-08-03 21:38] VITALS: BP 148/76
[2017-08-04 00:04] VITALS: BP 120/76
[2017-08-04 04:27] VITALS: BP 136/57
--- NOTE | 2017-08-04 07:23 | PN- Housestaff ---
GustavoBushnell 08/04/17 0723: Subjective Follow-up For: Choledocholithiasis and possible cholangitis Gram -ve bacteremia Subjective: No overnight events. Patient remained afebrileand examined this morning. She denied any chest pain, short of breath, nausea, vomiting, chills, fever, abdominal pain dysuria. She is on clear liquid diet and she is tolerating it. We will advance it to full liquid. Review of Systems Constitutional: Denies: chills, fever. EENTM: Reports: no symptoms. Cardiovascular: Denies: chest pain, palpitations. Respiratory: Denies: cough, short of breath, sputum production. Gastrointestinal: Denies: abdominal pain, constipation, diarrhea, nausea. Genitourinary: Reports: no symptoms. Neurological/Psychological: Reports: no symptoms. Objective Last 24 Hrs of Vital Signs/I&O Vital Signs Date Time Temp Pulse Resp B/P B/P Pulse O2 O2 Flow FiO2 Mean Ox Delivery Rate 08/04 0427 98.2 70 20 136/57 96 08/04 0004 97.9 78 20 120/76 96 08/03 2138 98.0 61 20 148/76 95 Room Air 08/03 1600 97.3 60 16 140/80 97 Room Air Intake & Output 08/04 0800 08/04 0000 08/03 1600 Intake Total 940 985 500 Output Total 600 250 Balance 940 385 250 Intake, IV 700 485 500 Intake, Oral 240 500 0 Number 0 0 Bowel Movements Output, Urine 600 250 Physical Exam General Appearance: Alert, Oriented X3, Cooperative Skin: No Rashes Skin Temp/Moisture Exam: Warm/Dry Sepsis Skin Exam (color): Normal for Ethnicity HEENT: Atraumatic, PERRLA, EOMI Neck: Supple Cardiovascular: Normal S1, Normal S2 Lungs: Clear to Auscultation Abdomen: Soft, No Tenderness Neurological: Normal Speech, Strength at 5/5 X4 Ext, Normal Tone Extremities: No Edema Assessment/Plan Assessment: 77-year-old female with a PMH of polymyalgia rheumatica previously on steroids, hypothyroidism who presents to the ED with N/V. Patient reports this morning she felt hungry and after eating his she had one episode of vomiting. Following the patient for following problems; Choledocholithiasis with possible cholangitis s/p ERCP and sphicterotomy: -On clear liquids. Keep her on clear liquids until surgery give us a plan for cholecystectomy. -Continue Unasyn 3gm Q6h started day 2 -Follow-up with CBC and if patient becomes febrile then we will do blood cultures. -We will follow general surgery for possible cholecystectomy before she leaves -IV Zofran as needed for nausea vomiting Gram -ve bacteremia: -Follow up final blood cultures. -Continue antibiotics Transaminitis: -Possibly due to CBD stone -We will follow LFTs History of hypothyroidism: -Continue levothyroxine, changed to po. DVT prophylaxis: Mechanical only and subcutaneous heparin was held as recommended by GI. CODE STATUS: Full code Problem List: 1. Cholangitis Pain Ratin Pain Location: none Pain Goal: Remain pain free Pain Plan: pain pathway Tomorrow's Labs & Rationales: cbc Vish BERNARD,Sergio 08/04/17 1214: Attending MD Review Statement Attending Statement Attending MD Statement: examined this patient, discuss w/resident/PA/[employer], agreed w/resident/PA/[employer], discussed with family, reviewed EMR data (avail), discussed with nursing, discussed with case mgmt, amended to note Attending Assessment/Plan: Patient seen and examined. Resting comfortably not in any acute distress. She underwent ERCP yesterday with no reported complications. She is resting well denying any nausea vomiting. Denies any abdominal pain. Examination abdomen is soft and nontender. She remains afebrile. She is hemodynamically stable. Blood cultures are growing gram-negative rods. She fortunately remains hemodynamically stable. White cell count has trended down to normal. Her transaminase levels are stable. Recommendations: -Continue current antibiotic regimen. -She will be followed up by the surgical service to undergo cholecystectomy. -Mobilize patient as tolerated. -Hold chemical DVT prophylaxis for now as recommended by the GI service.. Place bilateral compression device.
[2017-08-04 08:42] LABS: ABSOLUTE BASOPHIL COUNT 0 /CUMM (0.0-0.2); ABSOLUTE EOSINOPHIL COUNT 0.1 /CUMM (0.0-0.7); ABSOLUTE GRANULOCYTE CT 5.6 /CUMM (1.4-6.5); ABSOLUTE LYMPH COUNT 0.9 /CUMM (1.2-3.4); ABSOLUTE MONOCYTE COUNT 0.6 /CUMM (0.10-0.60); BASOPHIL % 0 % (0.0-2.0); EOSINOPHIL % 1.3 % (0-5); GRANULOCYTE % 78.2 % (42.2-75.2); HEMATOCRIT 33.6 % (37-47); MEAN CORPUSCULAR HGB 30.7 PG (27.0-31.0); MEAN CORPUSCULAR VOLUME 90.3 FL (81.0-99.0); MEAN PLATELET VOLUME 9.3 FL (7.4-10.4); RBC DISTRIBUTION WIDTH 13.7 % (11.5-14.5); RED BLOOD CELL CT 3.72 /CUMM (4.20-5.40); WHITE BLOOD CELL COUNT 7.1 /CUMM (4.8-10.8)
--- NOTE | 2017-08-04 08:51 | RADIOLOGY REPORT ---
EXAMINATION: XR ABDOMEN CLINICAL INDICATION: ERCP in OR COMPARISON: CT from 08/02/2017 TECHNIQUE: 11 procedural fluoroscopic images of the abdomen for ERCP. Total fluoroscopic time 2.7 minutes. Total dose 0.650 mGym2. FINDINGS: Endoscope seen on the initial image. There is cannulation of the common bile duct which is diffusely dilated. Filling defect noted within the duct. There is intrahepatic biliary ductal dilatation is well. Evidence of balloon sweep performed. IMPRESSION: Fluoroscopic guidance for ERCP. Dilated biliary ducts are noted with balloon sweep performed. Please refer to procedural report for further information.
[2017-08-04 10:14] LABS: PLATELET COUNT 203 /CUMM (130-400)
[2017-08-04 14:29] VITALS: BP 152/92
--- NOTE | 2017-08-04 15:31 | PN- Gastroenterology ---
Assessment/Plan GI Assessment/Recommendations: Assessment: Ms. Calix is a 77 year old female admitted with cholangitis s/p ERCP with stone extraction who is currently doing well. She has remained afebrile off of antibiotics and her LFTs have improved and she is also without any GI symptoms. I am hopeful that she will have an uneventful CCY and will be able to be discharged shortly after that. She is growing gram negative rods in her blood so would continue the IV antibiotics for now, but if she remains afebrile this can likely be changed to oral antibioitics in the morning to complete a 14 day course as an outpatient. Recommendations: 1. CCY as per surgery 2. Continue IV antibiotics through today and follow up cultures and tailor as indicated; if she remains afebrile consideration should be given to change her to oral antibiotics in the am 3. Diet as per surgery after CCY 4. Follow daily LFts while in house. I will sign off at this time and ask that GI be recontacted for any new GI issues that may arise on this hospitalization. Problem List: 1. Cholangitis 2. Sepsis Subjective Subjective: She is without complaints today. She is awaiting a cholecystectomy. She is status post ERCP yesterday with sphincterotomy and balloon dilation of her bile duct and removal of 2 large gallstones. He is without any abdominal pain or any nausea or vomiting. Objective Vital Signs and I&Os Vital Signs Date Time Temp Pulse Resp B/P B/P Pulse O2 O2 Flow FiO2 Mean Ox Delivery Rate 08/04 1429 98.7 78 16 152/92 98 Room Air 08/04 0427 98.2 70 20 136/57 96 08/04 0004 97.9 78 20 120/76 96 08/03 2138 98.0 61 20 148/76 95 Room Air 08/03 1600 97.3 60 16 140/80 97 Room Air Intake & Output 08/04 1600 08/04 0400 08/03 1600 08/03 0400 08/02 1600 08/02 040 Intake Total 940 946 095 6359 Output Total 600 250 Balance 940 589 272 6780 Intake, IV 700 002 976 8590 Intake, Oral 240 500 0 0 Number 0 0 Bowel Movements Output, Urine 600 250 Patient 135 lb Weight Weight Bed scale Measurement Method Physical Exam General Appearance: well developed/nourished, no apparent distress, alert, comfortable Head: atraumatic, normal appearance Neck: normal inspection, supple, full range of motion Respiratory: normal breath sounds, chest non-tender, no respiratory distress Cardiovascular: regular rate/rhythm Abdomen: normal bowel sounds, soft, non-tender, no organomegaly Extremities: normal inspection, no edema Current Medications: Current Medications Sig/Dominique Start time Last Medication Dose Route Stop Time Status Admin Acetaminophen 650 MG Q6P PRN 08/02 2345 08/03 PO 0906 Ampicillin Sodium/ 3,000 MG Q6 08/03 1800 DC Sulbactam Sodium IV Sodium Chloride 100 ML Ampicillin Sodium/ 3,000 MG 0400,1000,1600,2200 08/03 1600 AC 08/04 Sulbactam Sodium IV 0938 Sodium Chloride 100 ML Dextrose/Sodium 1,000 ML Q13H 08/04 1345 AC Chloride IV 08/05 0244 Dextrose/Sodium 1,000 ML Q13H 08/03 1000 ND 08/03 Chloride IV 08/03 2259 1019 Indomethacin 100 MG .STK-MED ONE 08/03 1533 DC IA 08/03 1534 Iopamidol 1 ML .STK-MED ONE 08/03 1531 DC IV 08/03 1532 Levothyroxine Sodium 0.075 MG DAILY AC 08/04 1000 08/04 PO 1205 Levothyroxine Sodium 37.5 MCG DAILY 08/03 0900 ND 08/03 IV 0920 Lidocaine 2 NELLIE .STK-MED ONE 08/03 1533 ND TOP 08/03 1534 Lidocaine 50 ML .STK-MED ONE 08/03 1533 ND TOP 08/03 1534 Patient Medication 1 ED ONE ONE 08/04 1100 DC Teaching ED 08/04 1101 Potassium Chloride 10 MEQ ONCE ONE 08/04 1345 DC IV 08/04 1346 Potassium Chloride 10 MEQ ONCE ONE 08/04 1315 DC IV 08/04 1316 Sodium Chloride 1,000 ML Q10H 08/03 0015 DC 08/03 IV 08/03 2013 0103 Trimethobenzamide HCl 200 MG TID PRN 08/03 0015 AC IM Results Pertinent Lab Results: Laboratory Tests 08/04 08/03 0755 0905 Chemistry Sodium (137 - 145 mmol/L) 141 143 Potassium (3.5 - 5.1 mmol/L) 3.5 3.1 L Chloride (98 - 107 mmol/L) 108 H 111 H Carbon Dioxide (22 - 30 mmol/L) 22 23 Anion Gap (5 - 16) 11 9 BUN (7 - 17 mg/dL) 11 12 Creatinine (0.5 - 1.0 mg/dL) 0.8 0.6 Estimated GFR (>60 ml/min) > 60 > 60 BUN/Creatinine Ratio (7 - 25 %) 13.8 20.0 Total Bilirubin (0.2 - 1.3 mg/dL) 1.1 1.3 Direct Bilirubin (< 0.4 mg/dL) 0.8 H 1.0 H AST (14 - 36 U/L) 42 H 47 H ALT (9 - 52 U/L) 70 H 72 H Alkaline Phosphatase (<127 U/L) 261 H 225 H Total Protein (6.3 - 8.2 g/dL) 5.8 L 4.9 L Albumin (3.5 - 5.0 g/dL) 3.1 L 2.6 L Hematology CBC w Diff NO MAN DIFF REQ WBC (4.8 - 10.8 /CUMM) 7.1 RBC (4.20 - 5.40 /CUMM) 3.72 L Hgb (12.0 - 16.0 G/DL) 11.4 L Hct (37 - 47 %) 33.6 L MCV (81.0 - 99.0 FL) 90.3 MCH (27.0 - 31.0 PG) 30.7 MCHC (33.0 - 37.0 G/DL) 34.0 RDW (11.5 - 14.5 %) 13.7 Plt Count (130 - 400 /CUMM) 203 MPV (7.4 - 10.4 FL) 9.3 Gran % (42.2 - 75.2 %) 78.2 H Lymphocytes % (20.5 - 51.1 %) 12.7 L Monocytes % (1.7 - 9.3 %) 7.8 Eosinophils % (0 - 5 %) 1.3 Basophils % (0.0 - 2.0 %) 0 Absolute Granulocytes (1.4 - 6.5 /CUMM) 5.6 Absolute Lymphocytes (1.2 - 3.4 /CUMM) 0.9 L Absolute Monocytes (0.10 - 0.60 /CUMM) 0.6 Absolute Eosinophils (0.0 - 0.7 /CUMM) 0.1 Absolute Basophils (0.0 - 0.2 /CUMM) 0 04/24 04/24 04/23 0755 0115 2343 Chemistry Lactic Acid (0.7 - 2.1 mmol/L) 1.3 Troponin I (< 0.11 ng/ml) 0.06 Hematology CBC w Diff NO MAN DIFF REQ WBC (4.8 - 10.8 /CUMM) 11.2 H RBC (4.20 - 5.40 /CUMM) 3.27 L Hgb (12.0 - 16.0 G/DL) 10.1 L Hct (37 - 47 %) 29.8 L MCV (81.0 - 99.0 FL) 91.1 MCH (27.0 - 31.0 PG) 30.9 MCHC (33.0 - 37.0 G/DL) 33.9 RDW (11.5 - 14.5 %) 13.8 Plt Count (130 - 400 /CUMM) 187 MPV (7.4 - 10.4 FL) 9.2 Gran % (42.2 - 75.2 %) 88.4 H Lymphocytes % (20.5 - 51.1 %) 4.9 L Monocytes % (1.7 - 9.3 %) 6.5 Eosinophils % (0 - 5 %) 0.1 Basophils % (0.0 - 2.0 %) 0.1 Absolute Granulocytes (1.4 - 6.5 /CUMM) 9.9 H Absolute Lymphocytes (1.2 - 3.4 /CUMM) 0.5 L Absolute Monocytes (0.10 - 0.60 /CUMM) 0.7 H Absolute Eosinophils (0.0 - 0.7 /CUMM) 0 Absolute Basophils (0.0 - 0.2 /CUMM) 0 08/02 08/02 08/02 2142 1912 1515 Chemistry Sodium (137 - 145 mmol/L) 136 L Potassium (3.5 - 5.1 mmol/L) 3.6 Chloride (98 - 107 mmol/L) 99 Carbon Dioxide (22 - 30 mmol/L) 25 Anion Gap (5 - 16) 12 BUN (7 - 17 mg/dL) 11 Creatinine (0.5 - 1.0 mg/dL) 0.8 Estimated GFR (>60 ml/min) > 60 BUN/Creatinine Ratio (7 - 25 %) 13.8 Glucose (65 - 99 mg/dL) 137 H Lactic Acid (0.7 - 2.1 mmol/L) Cancelled 2.0 Calcium (8.4 - 10.2 mg/dL) 9.2 Total Bilirubin (0.2 - 1.3 mg/dL) 3.2 H Direct Bilirubin (< 0.4 mg/dL) 2.4 H AST (14 - 36 U/L) 73 H ALT (9 - 52 U/L) 95 H Alkaline Phosphatase (<127 U/L) 348 H Troponin I (< 0.11 ng/ml) 0.08 Total Protein (6.3 - 8.2 g/dL) 6.5 Albumin (3.5 - 5.0 g/dL) 3.8 Globulin (1.9 - 4.2 gm/dL) 2.7 Albumin/Globulin Ratio (1.1 - 2.2 %) 1.4 Lipase (23 - 300 U/L) 87 Coagulation PT (9.4 - 12.5 SEC) 12.4 INR (0.90 - 1.19) 1.14 APTT (25 - 37 SEC) 30 Hematology CBC w Diff MAN DIFF ORDERED WBC (4.8 - 10.8 /CUMM) 14.8 H RBC (4.20 - 5.40 /CUMM) 3.86 L Hgb (12.0 - 16.0 G/DL) 11.8 L Hct (37 - 47 %) 34.7 L MCV (81.0 - 99.0 FL) 89.8 MCH (27.0 - 31.0 PG) 30.5 MCHC (33.0 - 37.0 G/DL) 34.0 RDW (11.5 - 14.5 %) 13.7 Plt Count (130 - 400 /CUMM) 208 MPV (7.4 - 10.4 FL) 8.3 Gran % (42.2 - 75.2 %) 94.1 H Lymphocytes % (20.5 - 51.1 %) 1.7 L Monocytes % (1.7 - 9.3 %) 4.0 Eosinophils % (0 - 5 %) 0.1 Basophils % (0.0 - 2.0 %) 0.1 Absolute Granulocytes (1.4 - 6.5 /CUMM) 13.9 H Segmented Neutrophils (42.2 - 75.2 %) 81 H Band Neutrophils (0.0 - 5.0 %) 14 H Absolute Lymphocytes (1.2 - 3.4 /CUMM) 0.2 L Monocytes (1.7 - 9.3 %) 5 Absolute Monocytes (0.10 - 0.60 /CUMM) 0.6 Absolute Eosinophils (0.0 - 0.7 /CUMM) 0 Absolute Basophils (0.0 - 0.2 /CUMM) 0 Platelet Estimate (ADEQUATE) VERIFIED BY SMEAR Stomatocytes 1+ > BLOOD CULTURE REPORT Preliminary 08/04/17 GRAM STAIN SUGGESTIVE OF: GRAM NEGATIVE RODS
--- NOTE | 2017-08-04 15:41 | Cons- General Surgery ---
General Information and HPI Consulting Request Date of Consult: 08/04/17 Requested By: Sergio Wahl MD Reason for Consult: Cholelithiasis History of Present Illness: Patient is a 77-year-old woman who was admitted to the medical service for treatment of cholangitis/choledocholithiasis. Apparently there was an outpatient ultrasound performed at a another facility which showed gallstones and choledocholithiasis. She had an appointment to see me in my office tomorrow but developed abdominal distress with vomiting and fevers. She came to the emergency room and was diagnosed with choledocholithiasis. She was febrile and had a leukocytosis and concern for cholangitis prompted ERCP. 2, duct stones were found and evacuated by ERCP. Patient now feels well. She has no abdominal symptoms. No fevers and her white blood cell count is normalized. Allergies/Medications Allergies: Coded Allergies: procaine (From NOVOCAIN) (Severe, COULDNT WAKE UP 08/02/17) Sulfa (Sulfonamide Antibiotics) (Intermediate, ITCHING 08/02/17) nitrofurantoin (From MACROBID) (Intermediate, FELT WORSE TAKING IT 08/02/17) Past History Medical History Blood Transfusion Hx: No Neurological: NONE EENT: NONE Cardiovascular: NONE Respiratory: NONE Hepatic: NONE Renal: NONE Musculoskeletal: NONE Psychiatric: NONE Endocrine: hypothyroidism Blood Disorders: NONE Cancer(s): NONE TRAILER CHIEF/Reproductive: NONE Surgical History Pertinent Surgical History: none Psychosocial History Where Do You Live? Home Services at Home: None Smoking Status: Never Smoked Review of Systems Review of Systems: Denies exertional chest pain or exertional dyspnea. She had vomiting on admission which is now resolved. Remainder 12 points negative Exam & Diagnostic Data Vital Signs and I&O Vital Signs Date Time Temp Pulse Resp B/P B/P Pulse O2 O2 Flow FiO2 Mean Ox Delivery Rate 08/04 1429 98.7 78 16 152/92 98 Room Air 08/04 0427 98.2 70 20 136/57 96 08/04 0004 97.9 78 20 120/76 96 08/03 2138 98.0 61 20 148/76 95 Room Air 08/03 1600 97.3 60 16 140/80 97 Room Air Intake & Output 08/04 1600 08/04 0800 08/04 0000 08/03 1600 08/03 0800 08/03 0000 Intake Total 940 985 248 858 3096 Output Total 600 250 Balance 940 385 915 320 1576 Intake, IV 700 485 946 100 1614 Intake, Oral 240 500 0 0 Number 0 0 Bowel Movements Output, Urine 600 250 Patient 135 lb Weight Weight Bed scale Measurement Method Physical Exam: Gen.: She is in no distress she looks her stated age she is a thin body habitus. HEENT: Anicteric PERRL EOMI Chest: Normal rest for excursion and effort. Nontender Abdomen: Soft nontender nondistended negative Dan sign Extremities: No cyanosis clubbing or edema Last 24 Hours of Labs: Laboratory Tests 08/04 0755 Chemistry Sodium (137 - 145 mmol/L) 141 Potassium (3.5 - 5.1 mmol/L) 3.5 Chloride (98 - 107 mmol/L) 108 H Carbon Dioxide (22 - 30 mmol/L) 22 Anion Gap (5 - 16) 11 BUN (7 - 17 mg/dL) 11 Creatinine (0.5 - 1.0 mg/dL) 0.8 Estimated GFR (>60 ml/min) > 60 BUN/Creatinine Ratio (7 - 25 %) 13.8 Total Bilirubin (0.2 - 1.3 mg/dL) 1.1 Direct Bilirubin (< 0.4 mg/dL) 0.8 H AST (14 - 36 U/L) 42 H ALT (9 - 52 U/L) 70 H Alkaline Phosphatase (<127 U/L) 261 H Total Protein (6.3 - 8.2 g/dL) 5.8 L Albumin (3.5 - 5.0 g/dL) 3.1 L Hematology CBC w Diff NO MAN DIFF REQ WBC (4.8 - 10.8 /CUMM) 7.1 RBC (4.20 - 5.40 /CUMM) 3.72 L Hgb (12.0 - 16.0 G/DL) 11.4 L Hct (37 - 47 %) 33.6 L MCV (81.0 - 99.0 FL) 90.3 MCH (27.0 - 31.0 PG) 30.7 MCHC (33.0 - 37.0 G/DL) 34.0 RDW (11.5 - 14.5 %) 13.7 Plt Count (130 - 400 /CUMM) 203 MPV (7.4 - 10.4 FL) 9.3 Gran % (42.2 - 75.2 %) 78.2 H Lymphocytes % (20.5 - 51.1 %) 12.7 L Monocytes % (1.7 - 9.3 %) 7.8 Eosinophils % (0 - 5 %) 1.3 Basophils % (0.0 - 2.0 %) 0 Absolute Granulocytes (1.4 - 6.5 /CUMM) 5.6 Absolute Lymphocytes (1.2 - 3.4 /CUMM) 0.9 L Absolute Monocytes (0.10 - 0.60 /CUMM) 0.6 Absolute Eosinophils (0.0 - 0.7 /CUMM) 0.1 Absolute Basophils (0.0 - 0.2 /CUMM) 0 Imaging Results: CT scan of the abdomen pelvis were personally reviewed. Findings show choledocholithiasis with significant biliary ductal dilatation. Gallbladder is dilated without evidence of inflammatory changes. Other Results: Blood culture show gram-negative rods 2 Assessment/Plan Assessment/Plan Choledocholithiasis/ascending cholangitis, resolved after ERCP. Given her absence of symptoms and normalization of her white blood cell count and LFTs, recommend laparoscopic cholecystectomy to prevent recurrence of her disease. Patient's informed the risk of the operation going bleeding, infection, conversion to open, postcholecystectomy diarrhea and unforeseen the visceral injury. She agrees to proceed. Copies To: Felipe BERNARD,Sandee Goodson Consult Acknowledgment - Thank you for your consult request.
--- NOTE | 2017-08-04 17:34 | Operative Report ---
Operative/Inv Procedure Report Surgery Date: 08/04/17 Name of Procedure: 1. Laparoscopic cholecystectomy 2. Umbilical hernia repair Pre-Operative Diagnosis: Choledocholithiasis status post ERCP Umbilical hernia Post-Operative Diagnosis: Same same Estimated Blood Loss: scant Surgeon/Timber Skidder: Norris Correa M.D./Marlene CAMP Anesthesia: general endotracheal tube Operative Indication: 77-year-old woman status post ERCP for choledocholithiasis. Symptoms have resolved, LFTs improved and leukocytosis normalized. Operative/Procedure Note Note: After informed consent patient is brought to the operating room and laid supine. General anesthesia was obtained and her abdomen was prepped and draped. The skin below the umbilicus infiltrated with local anesthesia and a curvilinear incision made sharply. We came down through the subcutaneous tissues bluntly and identified an umbilical hernia. The umbilical stalk was circumferentially dissected and then transected with cautery. There is a fat-containing and periumbilical hernia. The fascial edges were incised with cautery and contents and reduced. Stay sutures were placed and a blunt Cavazos was port was placed. Pneumoperitoneum was achieved. 3, 5 mm ports were placed in the epigastrium and right upper quadrant after local anesthesia was instilled and under direct vision the camera. She's placed in reverse Trendelenburg and rotated towards the left. The gallbladder is identified. It was encased in adhesions which were taken down with cautery. Eventually we could identify the dome which was then grasped and retracted towards the head. Infundibulum was then grasped. Adhesions to the undersurface were taken down with blunt and cautery dissection. We dissected both sides the triangle Calot peritoneal tissue with cautery. The artery was medial and its normal anatomic position. It was cauterized medially to allow it to be mobilized away from the duct. [place] was cleared of areolar tissue with cautery. The arteries and duct were doubly ligated with clips. Gallbladder is removed from the fossa electrocautery. We encountered a second branch of the artery which was doubly ligated with clips. The gallbladder was placed in Endo Catch bag and cinched up. Right upper quadrant was and suction irrigated normal saline. Hemostasis achieved with cautery. The ports were then removed and the gallbladder delivered and passed off the field. The fascia was closed with 0 Vicryl suture. Skin incisions closed with 4-0 Vicryl. Steri- Strips and sterile dressing applied. Sponge and needle counts are correct. CC: Felipe BERNARD,Sandee Goodson
[2017-08-04 18:47] VITALS: BP 148/72
--- NOTE | 2017-08-04 20:28 | PN- General Surgery ---
Subjective Subjective: Postop check: Mild complaints of pain, control with Percocet Nausea initially postoperatively, resolved after Zofran Able to take small sips Objective Vital Signs and I&Os Vital Signs Date Time Temp Pulse Resp B/P B/P Pulse O2 O2 Flow FiO2 Mean Ox Delivery Rate 08/04 1847 98.2 59 18 148/72 100 Room Air 08/04 1429 98.7 78 16 152/92 98 Room Air 08/04 0427 98.2 70 20 136/57 96 08/04 0004 97.9 78 20 120/76 96 08/03 2138 98.0 61 20 148/76 95 Room Air Intake & Output 08/04 1600 08/04 0800 08/04 0000 08/03 1600 08/03 0800 08/03 0000 Intake Total 940 985 162 920 2179 Output Total 600 250 Balance 940 385 094 791 7321 Intake, IV 700 485 016 272 3609 Intake, Oral 240 500 0 0 Number 0 0 Bowel Movements Output, Urine 600 250 Patient 135 lb Weight Weight Bed scale Measurement Method Physical Exam: Well-developed well-nourished no apparent distress. HEENT: Atraumatic, extraocular motion intact Neck: Supple, no lymphadenopathy Respiratory: No respiratory distress Abdomen: Mild distention, dressings clean dry and intact, mild tenderness right upper quadrant as expected. Hypoactive bowel sounds Extremities: No edema, no calf pain Neuro: Alert and oriented x3 Psych: Mood affect normal, normal memory normal judgment. Skin: Warm and dry, no rash on exposed skin Assessment/Plan Assessment/Plan Postop day #0 status post laparoscopic cholecystectomy Advance diet as tolerated to low-fat diet. Pain medication as needed. 10 pound weight lifting restriction until follow-up visit. May shower in 2 days, change bandages when wet. Out of bed, ambulate Follow-up as outpatient 10-[address] Correa Please call with questions Core Measures Venous Thromboembolism VTE Risk Factors Age>40 No Mechanical VTE Prophylaxis d/t N/A MechProphylax Ordered No VTE Pharm Prophylaxis d/t Medical Contraindication
[2017-08-04 22:34] VITALS: BP 144/69
[2017-08-04] MEDS ORDERED: SYNTHROID75 MCG PO (22:53)
--- NOTE | 2017-08-04 22:59 | Patient Discharge Instructions ---
Discharge Instructions General Discharge Information You were seen/treated for: Choledocholithiasis s/p ERCP and lap jimmy with umbilical hernia repair Cholangitis Watch for these problems: Abdominal pain, nausea, vomiting, chills, fever, diarrhea and constipation. If you experience any of these symptoms come to ED or call to your pcp. Special Instructions: Follow up with your pcp in one week and follow for blood culture report and repeat blood cultures after antibiotic course. Follow up with your test preparation tutor in one week. Follow up with general surgery in one week. 10 pound weight lifting restriction until follow-up visit. May shower in 2 days, change bandages when wet. Diet Recommended Diet: Low Fat Activity Activity Self Limited: Yes Acute Coronary Syndrome Inclusion Criteria At DC or during hospital stay patient has or had the following: ACS DIAGNOSIS No Discharge Core Measures Meds if any: Prescribed or Continued at Discharge Meds if any: NOT Prescribed or Continued at Discharge Congestive Heart Failure Inclusion Criteria At DC or during hospital stay patient has or had the following: CHF DIAGNOSIS No Discharge Core Measures Meds if any: Prescribed or Continued at Discharge Meds if any: NOT Prescribed or Continued at Discharge Cerebrovascular accident Inclusion Criteria At DC or during hospital stay patient has or had the following: CVA/TIA Diagnosis No Discharge Core Measures Meds if any: Prescribed or Continued at Discharge Meds if any: NOT Prescribed or Continued at Discharge Venous thromboembolism Inclusion Criteria VTE Diagnosis No VTE Type NONE VTE Confirmed by (Test) NONE Discharge Core Measures - Per Current guidelines, there needs to be overlap - treatment for the first 5 days of Warfarin therapy. - If discharged on Warfarin prior to 5 days of - overlap therapy, the patient will need to be - assessed for post discharge needs including - *Post discharge parental anticoagulation - *Warfarin and/or parental anticoagulation education - *Follow up date to check INR post discharge At least 5 days overlap therapy as Inpatient No Meds if any: Prescribed or Continued at Discharge Note: Overlap Therapy is Warfarin and Anticoagulant Meds if any: NOT Prescribed or Continued at Discharge
--- NOTE | 2017-08-04 23:09 | Discharge Summary ---
Visit Information Visit Dates Admission Date: 08/02/17 Discharge Date: 08/05/17 Hospital Course Course Attending Physician: Sergio Wahl MD Primary Care Physician: Sandee Wang MD Hospital Course: 77-year-old female with a PMH of polymyalgia rheumatica previously on steroids, hypothyroidism who presents to the ED with N/V. Patient reports this morning she felt hungry and after eating his she had one episode of vomiting. ED course: Vitals; temperature 98.9, pulse 112, respiratory rate 16, pressure 122/72, oxygen saturation 96% on room air Labs; WBC count 14.8, hemoglobin 11.8, hematocrit 34.7, platelet count 28, sodium 136, potassium 3.6, BUN 11, creatinine 0.8, glucose 137, calcium 9.2, BUN /creatinine ratio 13.8, AST 73, AST 95, total bilirubin 3.2, direct bilirubin 2.4, Blood cultures were obtained in ED. Choledocholithiasis with cholangitis s/p ERCP and laparoscopic cholecystectomy: Patient presented with nausea and vomiting and on imaging study she was found to have choledocholithiasis. Patient was kept nothing by mouth and given gentle IV fluids. GI consult was obtained and recommendations were followed. GI recommended ERCP that was done with sphincterotomy and bile duct stones at the distal end were extracted. Next day surgical consult was obtained and recommendations were followed and patient was scheduled for laparoscopic cholecystectomy. Cholecystectomy was done and patient started on clear fluid. Later on her diet was advanced to a high-fiber diet and she tolerated it well. Patient remained afebrile and there was no complaint of abdominal pain or nausea , vomiting. Patient was asymptomatic and she was tolerating food and she was discharged. Patient was instructed to follow general surgery within 2 weeks and GI. Acute cholangitis with Klebsiella bacteremia: Due to CBD obstruction she developed cholangitis. Patient was started on IV Unasyn 3 g every 6 hourly. Her blood cultures were positive with Klebsiella. Patient remained afebrile and her WBC count came back to normal. Patient was discharged on Augmentin for 11 more days to complete 2 weeks antibiotic course. Patient was instructed to follow primary care physician for repeat blood cultures after completion of her antibiotic course. Transaminitis: Patient had transaminitis probably due to CBD obstruction. After extraction of gallstones from CBD her LFTs started to improve. During hospital stay her LFTs were monitored. History of hypothyroidism: Will continued her levothyroxine. DVT prophylaxis: Mechanical only, considering her procedures as recommended by GI. CODE STATUS: Full code Allergies: Coded Allergies: procaine (From NOVOCAIN) (Severe, COULDNT WAKE UP 08/02/17) Sulfa (Sulfonamide Antibiotics) (Intermediate, ITCHING 08/02/17) nitrofurantoin (From MACROBID) (Intermediate, FELT WORSE TAKING IT 08/02/17) Significant Procedures: GI Procedure(s): ERCP with sphincterotomy (ES)/papillary balloon dilatation (EPBD)/stone lead painter: Allen Peres M.D. ASA Classification: II Indications: Ascending cholangitis Choledocholithiasis identified on imaging Instrument: duodenoscope Meds Received: MAC Patient's Tolerance: good Complications: none Procedure: The patient signed informed consent, and was brought to the operating suite. She was turned into the prone position, and medicated. Indomethacin 100 mg was administered per rectum. Pulse oximetry, blood pressure and cardiac monitoring were performed continuously throughout the procedure. The Olympus V duodenoscope was inserted into the mouth and advanced to the duodenum. There was brief, self-limited bleeding from the oropharynx upon insertion of the duodenoscope. The stomach was not examined. The duodenum was grossly normal. The papilla was enlarged but otherwise normal. The pancreatic duct was not cannulated/injected. The bile duct was cannulated and opacified. The cholangiogram demonstrated dilatation of the common bile duct and common hepatic duct (approximate 1.7 cm), and dilated hepatic ducts. There were no strictures. The cystic duct was not opacified. There were 2 large ( approximately 12 and 13 mm) mobile filling defects in the extrahepatic duct. A partial sphincterotomy was performed. The ampulla was then dilated with a CRE balloon to 13.5 mm for 30 seconds. There was mild/brief, self-limited bleeding at the apex of the papilla. 2 stones were extracted using a fully inflated 15 mm extraction balloon. The balloon itself passed into the duodenum without resistance. A final occlusion cholangiogram was unrevealing, and a final sweep from bifurcation to duodenum did not deliver stone or debris. Impression: Choledocholithiasis, treated with ES/EPBD and stone extraction Recommendations: Nothing by mouth until 8 PM, and then begin clear liquids if pain-free No anticoagulation for 72 hours unless unavoidable Follow-up CBC and LFTs tomorrow Continue intravenous antibiotics, pending final results of blood cultures Surgical consultation; Dr. Correa has been made aware Name of Procedure: 1. Laparoscopic cholecystectomy 2. Umbilical hernia repair Pre-Operative Diagnosis: Choledocholithiasis status post ERCP Umbilical hernia Post-Operative Diagnosis: Same same Estimated Blood Loss: scant Surgeon/Excellence Manager: Norris Correa M.D./Marlene CAMP Anesthesia: general endotracheal tube Operative Indication: 77-year-old woman status post ERCP for choledocholithiasis. Symptoms have resolved, LFTs improved and leukocytosis normalized. Operative/Procedure Note Note: After informed consent patient is brought to the operating room and laid supine. General anesthesia was obtained and her abdomen was prepped and draped. The skin below the umbilicus infiltrated with local anesthesia and a curvilinear incision made sharply. We came down through the subcutaneous tissues bluntly and identified an umbilical hernia. The umbilical stalk was circumferentially dissected and then transected with cautery. There is a fat-containing and periumbilical hernia. The fascial edges were incised with cautery and contents and reduced. Stay sutures were placed and a blunt Cavazos was port was placed. Pneumoperitoneum was achieved. 3, 5 mm ports were placed in the epigastrium and right upper quadrant after local anesthesia was instilled and under direct vision the camera. She's placed in reverse Trendelenburg and rotated towards the left. The gallbladder is identified. It was encased in adhesions which were taken down with cautery. Eventually we could identify the dome which was then grasped and retracted towards the head. Infundibulum was then grasped. Adhesions to the undersurface were taken down with blunt and cautery dissection. We dissected both sides the triangle Calot peritoneal tissue with cautery. The artery was medial and its normal anatomic position. It was cauterized medially to allow it to be mobilized away from the duct. [place] was cleared of areolar tissue with cautery. The arteries and duct were doubly ligated with clips. Gallbladder is removed from the fossa electrocautery. We encountered a second branch of the artery which was doubly ligated with clips. The gallbladder was placed in Endo Catch bag and cinched up. Right upper quadrant was and suction irrigated normal saline. Hemostasis achieved with cautery. The ports were then removed and the gallbladder delivered and passed off the field. The fascia was closed with 0 Vicryl suture. Skin incisions closed with 4-0 Vicryl. Steri- Strips and sterile dressing applied. Sponge and needle counts are correct. Pertinent Lab Results: Abdominal/pelvic CT scan on 08/02/2017: IMPRESSION: Significant dilatation of the bile ducts. There are 2 stones impacted in the distal CBD. These each measure about 1.3 cm. No stones identified in the gallbladder and there is no edema around the gallbladder. Abdominal x-ray on 06/05/2017: IMPRESSION: Fluoroscopic guidance for ERCP. Dilated biliary ducts are noted with balloon sweep performed. Please refer to procedural report for further information. WBC count 7.1, hemoglobin 11.4, hematocrit 33.6, platelet count 203, sodium 140, potassium 3.9, BUN 8, creatinine 0.7, total bilirubin 0.8, direct bilirubin 0.7, AST 38, ALT 60, alkaline phosphatase 216 Disposition Summary Disposition Principal Diagnosis: Choledocholithiasis status post ERCP with sphincterotomy and later on laparoscopic cholecystectomy. Acute cholangitis with Klebsiella bacteremia. Additional Diagnosis: History of Hypothyroidism Discharge Disposition: home or self care Discharge Instructions General Discharge Information Code Status: Full Code Patient's Diet: Low-fat diet Patient's Activity: Self-limited Follow-Up Instructions/Appts: Follow up with your pcp in one week and follow for blood culture report and repeat blood cultures after antibiotic course. Follow up with your branch services manager in one week. Follow up with general surgery in one week. 10 pound weight lifting restriction until follow-up visit. May shower in 2 days, change bandages when wet. Medications at Discharge Discharge Medications: Continue taking these medications: Levothyroxine Sodium (Levothyroxine Sodium) 75 MCG TABLET 1 Tablet ORAL DAILY Comments: Last Taken: 08/05/17 Time: 0540AM Start taking the following new medications: Amoxicillin/Potassium Clav (Augmentin 875-125 Tablet) 875 MG-125 MG TABLET 1 Tablet ORAL TWICE DAILY Qty = 22 No Refills Instructions: . Comments: NOT GIVEN IN HOSPITAL Copies To: Ja BERNARD,Allen Henriquez; Sunny BERNARD,Norris Wang MD,Sandee Goodson Attending MD Review Statement Documenting Attending: Sergio Wahl MD Other Findings: Discharged in stable condition.
[2017-08-05 05:40] VITALS: BP 124/86
--- NOTE | 2017-08-05 06:59 | PN- Housestaff ---
[facility]: Subjective Follow-up For: Choledocholithiasis s/p ERCP and Lap jimmy Klebsiella bacteremia Acute cholangitis Subjective: No overnight events. Remained asfibrile. POD 1. Denied any chest pain, abdominal pain, nausea, vomiting, chills and fever. Patient was instructed to follow surgery as outpatient in 2 weeks and GI. She will follow pcp for repeat blood cultures after the antibiotic course. Review of Systems Constitutional: Denies: chills, fever. EENTM: Reports: no symptoms. Cardiovascular: Denies: chest pain, orthopena, palpitations. Respiratory: Denies: cough, short of breath, sputum production. Gastrointestinal: Denies: abdominal pain, bloating, diarrhea, melena, nausea. Genitourinary: Reports: no symptoms. Musculoskeletal: Reports: no symptoms. Neurological/Psychological: Reports: no symptoms. Objective Last 24 Hrs of Vital Signs/I&O Vital Signs Date Time Temp Pulse Resp B/P B/P Pulse O2 O2 Flow FiO2 Mean Ox Delivery Rate 08/05 0540 97.7 67 20 124/86 97 Room Air 08/04 2234 97.9 77 18 144/69 97 Room Air 08/04 1847 98.2 59 18 148/72 100 Room Air 08/04 1429 98.7 78 16 152/92 98 Room Air Intake & Output 08/05 1600 08/05 0800 08/05 0000 Intake Total 1030 980 Output Total 350 Balance 1030 630 Intake, IV 550 300 Intake, Oral 480 680 Number 0 0 Bowel Movements Output, Urine 350 Physical Exam General Appearance: Alert, Oriented X3, Cooperative Skin: No Rashes Skin Temp/Moisture Exam: Warm/Dry Sepsis Skin Exam (color): Normal for Ethnicity HEENT: Atraumatic, PERRLA, EOMI Neck: Supple Cardiovascular: Normal S1, Normal S2 Lungs: Clear to Auscultation Abdomen: Soft, No Tenderness Neurological: Normal Speech, Strength at 5/5 X4 Ext, Normal Tone Extremities: No Edema Assessment/Plan Assessment: 77-year-old female with a PMH of polymyalgia rheumatica previously on steroids, hypothyroidism who presents to the ED with N/V. Patient reports this morning she felt hungry and after eating his she had one episode of vomiting. Following the patient for following problems; Choledocholithiasis with cholangitis s/p ERCP and Lap jimmy: -POD 1 after laparoscopic cholecystectomy -Patient is tolerating low-fat diet. -Continue Unasyn 3gm Q6h started day 3. After discharge she will continue Augmentin for 11 more days to complete 14 days course of antibiotics. -Was instructed to follow primary care physician for repeat blood cultures after complete of antibiotic course. -Instructed to follow the general surgery after discharge in 2 weeks. -Patient is afebrile and she is being discharged home today Klebsiella bacteremia: -Follow up final blood cultures. -Continue antibiotics Transaminitis: -Possibly due to CBD stone -We will follow LFTs History of hypothyroidism: -Continue levothyroxine, changed to po. DVT prophylaxis: Mechanical only and subcutaneous heparin was held as recommended by GI. CODE STATUS: Full code Problem List: 1. Cholangitis Pain Ratin Pain Location: none Pain Goal: Remain pain free Pain Plan: pain pathway Tomorrow's Labs & Rationales: none Vish BERNARD,Sergio 08/05/17 1200: Attending MD Review Statement Attending Statement Attending MD Statement: examined this patient, discuss w/resident/PA/DISTRICT GAUGER, agreed w/resident/PA/DISTRICT GAUGER, discussed with family, reviewed EMR data (avail), discussed with nursing, discussed with case mgmt, amended to note Attending Assessment/Plan: Patient seen and examined. Resting comfortably not in any acute distress. No issues overnight. No events reported by nursing staff. She underwent elective cholecystectomy yesterday with no reported complications. This morning she denies nausea vomiting. Denies abdominal pain. Tolerating her meals. On examination abdomen is nondistended soft and nontender with normal bowel sounds. She is afebrile hemodynamically stable. She is medically stable to be discharged today. She will follow-up with the surgical service as an outpatient. She will be discharged on Augmentin to complete 14 days of therapy for her Klebsiella bacteremia likely brought on by her cholangitis. This is been explained to the patient and family and they verbalized understanding.
[2017-08-05] MEDS ORDERED: AUGMENTIN 875-1 EACH PO ×2 (07:36→09:49)
[2017-08-05] MEDS ORDERED: LEVOTHYROXINE75 MCG PO (08:32)
--- NOTE | 2017-08-05 09:21 | PN- General Surgery ---
Surgical Brief Attending Note Brief Attending Note: Feeling well after lap jimmy. From surgical perspective she can be discharged to home on low fat diet. Will need abx (oral) at discharge for Klebsiella bacteremia related to cholangitis. Defer to primary team.
== END 2017-08-05 11:42 | DRG 418 ==
LOC: ERH 14:57 → 2NB 21:51 → ERHI 21:51 → ENRESERV 08-03 00:14 → 2NB 08-03 00:41 → ENTRNSPT 08-04 18:09 → EDTRNSPTSTS 08-04 18:21 → EDTRNSPT 08-04 18:21 → CMPTRNSPT 08-04 18:39 → ENPENDDIS 08-05 10:34 → ENTRNSPT 08-05 11:34 → EDTRNSPT 08-05 11:37 → EDTRNSPTSTS 08-05 11:37 → 2NB 08-05 11:42 → CMPTRNSPT 08-05 11:51
PROVIDERS: Internal Medicine; Physician Assistant Medical; Student in an Organized Health Care Education/Training Program
PROC: 0F798ZZ Dilation of Common Bile Duct, Via Natural or Artificial Opening Endoscopic (ICD-10-PCS; principal; 2017-08-04)
PROC: 0FC98ZZ Extirpation of Matter from Common Bile Duct, Via Natural or Artificial Opening Endoscopic (ICD-10-PCS; 2017-08-04)
PROC: 0FT44ZZ Resection of Gallbladder, Percutaneous Endoscopic Approach (ICD-10-PCS; 2017-08-04)
PROC: 0WQF4ZZ Repair Abdominal Wall, Percutaneous Endoscopic Approach (ICD-10-PCS; 2017-08-04)
DX: K80.32 Calculus of bile duct with acute cholangitis without obstruction (principal); E87.2 Acidosis; E86.0 Dehydration; R78.81 Bacteremia; B96.1 Klebsiella pneumoniae [K. pneumoniae] as the cause of diseases classified elsewhere; M35.3 Polymyalgia rheumatica; E03.9 Hypothyroidism, unspecified; K42.9 Umbilical hernia without obstruction or gangrene; D72.829 Elevated white blood cell count, unspecified; K21.9 Gastro-esophageal reflux disease without esophagitis
CPT/HCPCS: 2NBP; ERO; 36592; 74018; 74177; 82436; 87040; 93005; 93010; 96361; 96374; 96375; J0696; J2405; J7042; Q9967